=== PATIENT | female | born 1985 | race Caucasian/White ===

== ENCOUNTER 2024-06-11 19:03 | Emergency (ER) | payer MEDICAID, SELFPAY ==
--- NOTE | ~2024-06-11 | CT_ITS ---
EXAMINATION: CT ABDOMEN AND PELVIS WITH CONTRAST CLINICAL INFORMATION: Right lower quadrant pain with history of appendectomy COMPARISON: None TECHNIQUE: Multidetector volumetric imaging was performed from the superior aspect of the liver through the pubic symphysis with intravenous contrast. A total of 85 mL of Omnipaque 350 was utilized for the study. Sagittal and coronal reformatted images were obtained on the technologist's workstation. This CT examination was performed using dose optimization techniques as appropriate, variously including the following: *Automated exposure control *Adjustment of mA and/or kV according to patient size (this includes techniques or standardized protocols for targeted exams where dose is matched to indication/reason for exam; i.e. extremities or head) *Use of iterative reconstruction technique DLP: 707 mGy-cm FINDINGS: LUNG BASES: The visualized lung bases are unremarkable. LIVER, GALLBLADDER, AND BILIARY TREE: The liver is normal in size, shape, and attenuation. No focal hepatic lesion. There is mild prominence of central bile ducts along with dilatation of the common bile duct at 1.2 cm.. The gallbladder is unremarkable with no evidence of radiopaque gallstones, gallbladder wall thickening, or obvious pericholecystic inflammatory changes. PANCREAS: Unremarkable. SPLEEN: Spleen is enlarged measuring 16.4 cm in cephalocaudad dimension. ADRENAL GLANDS: Unremarkable. KIDNEYS AND URETERS: The kidneys are normal in size, shape, and attenuation. No hydronephrosis, hydroureter, or calculi seen. No perinephric stranding. BLADDER: Unremarkable. GASTROINTESTINAL TRACT: The small and large bowel are unremarkable. The appendix is not seen and there are surgical clips present in the expected region of the appendix. ABDOMINAL WALL: No significant hernia is appreciated. LYMPH NODES: No retroperitoneal lymphadenopathy. VASCULAR: Unremarkable. PELVIC VISCERA: Unremarkable. OSSEOUS STRUCTURES: Unremarkable. CT/CT abdomen pelvis w IV con IMPRESSION: 1. A cause for the patient's right lower quadrant pain has not been found. 2. Status post appendectomy. 3. Incidental note made of splenomegaly and dilatation of the common bile duct. Abdominal ultrasound or possibly even MRCP may be useful for further evaluation. Fleischner guidelines were followed. Electronically signed by: Jorge Alberto Phillips MD 06/12/2024 12:19 AM EDT
--- NOTE | ~2024-06-11 | US_ITS ---
EXAMINATION: US ABDOMEN LIMITED CLINICAL INFORMATION: Right upper quadrant pain. Elevated liver function tests.. COMPARISON: CT abdomen and pelvis 06/11/2024. TECHNIQUE: Real-time imaging of the right upper quadrant abdominal viscera. FINDINGS: PANCREAS: The visualized pancreatic head and body are normal in appearance. LIVER: Normal. The liver is normal in size. The liver contour is normal. Parenchymal echogenicity is normal. No focal hepatic lesion. There is no intrahepatic biliary duct dilatation seen. GALLBLADDER: Normal appearance of the gallbladder. The gallbladder demonstrates moderate physiologic distention. No cholelithiasis identified. A negative sonographic Hernandez's sign reported by the surgical scrub technologist. Normal gallbladder wall thickness. No pericholecystic fluid collections. COMMON BILE DUCT: Normal in caliber measuring 1.1 cm in diameter. RIGHT KIDNEY: Normal. No hydronephrosis. No renal calculi or focal parenchymal lesions. The kidney measures 10.8 cm in maximum dimension. FREE FLUID: None. US/US abdomen limited IMPRESSION: *Ectasia of the common bile duct. The common bile duct measures 1.1 cm in maximum diameter. No choledocholithiasis identified. No intrahepatic biliary duct dilatation. Findings could be secondary to dysfunction of the sphincter of Teddy or nonvisualized choledocholithiasis. *No cholelithiasis. No gallstones noted within the gallbladder lumen. Normal appearance of the gallbladder. Electronically signed by: Ludwin Walsh MD 06/12/2024 02:22 AM EDT
[2024-06-11 19:34] VITALS: BP 113/74; BP 118/75; PULSE 68; PULSE 76; RESP 16; TEMP 36.4; O2SAT 100; BMI 32.9
--- NOTE | 2024-06-11 19:43 | ECG_ITS ---
Test Reason : chest pain Blood Pressure : / mmHG Vent. Rate : 060 BPM Atrial Rate : 060 BPM P-R Int : 158 ms QRS Dur : 078 ms QT Int : 448 ms P-R-T Axes : 048 -14 029 degrees QTc Int : 448 ms Normal sinus rhythm Normal ECG No previous ECGs available Referred By: Generic ED Physician Electronically Signed By:BECK STOCK
[2024-06-11 20:07] LABS: Appearance Urine Clear; Color Urine Dark Yellow; Glucose Urine UA Negative (Negative); Leukocyte Esterase Urine Trace (Negative); Nitrite Urine Negative (Negative); PH 5.5 (5.0-9.0); Specific Gravity - Urine >= 1.030 (1.005-1.025); UMIC TRIGGER UACC YES; Urine Blood Negative (Negative); Urine Ketones Negative (Negative); Urine Protein Negative (Neg-Trace)
[2024-06-11 20:08] LABS: UPreg QC Valid YES; Urine Pregnancy NEGATIVE (NEGATIVE)
[2024-06-11 20:21] LABS: Bacteria Urine Trace (None Seen); Hyaline Casts Urine 0-2 /LPF (0-2); RBC Urine 0-2 /HPF (0-2); WBC Urine 0-5 /HPF (0-5)
--- NOTE | 2024-06-11 20:48 | PC.NURSE ---
multiple attempts for iv/labs pt refusing further pokes.
--- NOTE | 2024-06-11 21:23 | MHC.EDTECH ---
Unable to get labs,multiple attempts, rn neurology came and attempted was not successful,RN is aware
--- NOTE | 2024-06-11 21:54 | PC.NURSE ---
Isak NGUYEN made aware unable to obtain labs.
--- NOTE | 2024-06-11 22:05 | ED.FEMALEGU ---
HPI - Female Genitourinary General Chief complaint: Urogenital-Female Stated complaint: [place], R sided abd, radiating to back Time Seen by Provider: 06/11/24 21:55 Source: patient and EMS Mode of arrival: EMS Limitations: no limitations History of Present Illness ED Provider: Dr. Lenore Bowman HPI Narrative: Patient comes to the emergency room complaining of right lower quadrant pain for couple of days. Patient states that the pain radiates towards the back. Patient is coming via ambulance from [facility] for right lower quadrant pain. Patient states that she had an appendectomy when she was 15 years old. Patient denies vaginal bleeding. Patient concerned about being . According to the patient's nurse, in triage she was noted the patient was concerned about being poisoned with red poison. She did not make any mention of this to me. Patient denies nausea vomiting or diarrhea Related Data Previous Rx's ?Medication ?Instructions ?Recorded hyoscyamine sulfate 0.125 mg tablet 0.125 mg PO QID PRN dyspepsia #10 06/12/24 tabs Allergies Allergy/AdvReac Type Severity Reaction Status Date / Time Penicillins Allergy Shortness Verified 06/11/24 19:41 of Breath Review of Systems Review of Systems: Constitutional : No Weight loss, No Fever, No Chills, No Night Sweats, No Fatigue, No Malaise ENT/Mouth : No Hearing loss, No Ear Pain, No Nasal Congestion, No Sinus Pain, No Hoarseness, No sore throat, No Rhinorrhea, No Swallowing Difficulty Eyes: No Eye Pain, No Swelling, No Redness, No Foreign Body, No Discharge, No Vision Changes Cardiovascular : No Chest Pain, No SOB, No Dyspnea on Exertion, No Orthopnea, No Edema, No Palpitations Respiratory : No Cough, No Sputum, No Wheezing, No Smoke Exposure, No Dyspnea Gastrointestinal : No Nausea, No Vomiting, No Diarrhea, No Constipation, complaining of right lower quadrant pain radiating towards the back Genitourinary : no irregular bleeding, No Dysuria, No Urinary Frequency, No Hematuria, No Urinary Incontinence, No Urgency, No Flank Pain, No Urinary Flow Changes, No Hesitancy Musculoskeletal : No joint pain, No Myalgias, No Joint Swelling Skin : No Skin Lesions, No rash Neuro : No Weakness, No Numbness, No Paresthesias, No Loss of Consciousness, No Dizziness, No Headache Psych : No Anxiety/Panic, No Depression, No SI/HI/AH/VH, No Social Issues, Heme/Lymph: No Bruising, No Bleeding,No Lymphadenopathy Endocrine : No Polyuria, No Polydipsia, No Temperature Intolerance [facility] Social History Social History Advance Directives: No Advance Directives Information Provided: No Do you have a plan to hurt others: No Plan Physical Exam Vital Signs: Vital Signs: Last Vital Signs Temp 98.1 F 06/11/24 22:14 Pulse 74 06/11/24 22:14 Resp 18 06/11/24 22:14 BP 142/81 H 06/11/24 22:14 Pulse Ox 98 06/11/24 22:14 O2 Del Method Room Air 06/11/24 22:14 BMI result Body Mass Index 32.9 Const: Other: Appearance: Alert. Oriented X3. No acute distress. Eyes: Pupils equal, round and reactive to light. ENT: Pharynx normal. Neck: Normal inspection. Neck supple. No lymph nodes noted. No crepitus CVS: Normal heart rate and rhythm. Pulses normal. Normal S1 and S2 Respiratory: No respiratory distress. Breath sounds normal. No Wheezing. No rales Abdomen: Soft , mild to moderate tenderness to palpation in the suprapubic and right lower quadrant. No rigidity. No distention. Skin: Skin warm and dry. Normal skin color. Normal skin turgor. Extremities: No lower extremity edema. No Lacerations. No Rash Neuro: Oriented X 3. No motor deficit. No sensory deficit. Moving all extremities. No slurred speech. CN 2 through 12 grossly intact Psych: calm, cooperative, normal affect Course Course Course Narrative: All of patient's labs pending CT scan pending Medications Administered Discontinued Medications Generic Name Dose Route Start Last Admin Trade Name Freq PRN Reason Stop Dose Admin Iohexol 85 ml 06/11/24 23:06 06/11/24 23:07 Iohexol 350 Mg/Ml 100 Ml Infus..Btl IV 06/11/24 23:07 85 ml ONCE ONE Administration Medical Decision Making Medical Decision Making [facility] Narrative: My interpretation of labs: Significant abnormality in patient's hematology, chemistry within normal limits, T bilirubin normal, AST LFT and alk-phos are slightly elevated. Troponin negative., lipase negative -my interpretation of CT scan of the abdomen, no obvious abnormality. Radiology report shows an incidental note of splenomegaly and dilation of the common bile duct. -ultrasound of the abdomen: Common bile duct normal in caliber measuring 1.1 cm. No choledocholithiasis identified, findings could be secondary to dysfunction of sphincter of Oddi, no acute cholecystitis. Patient instructed to follow-up with gastroenterology. Differential Diagnosis Differential Diagnoses: The differential diagnosis associated with the presentation includes (Gastritis, gastroenteritis, pancreatitis, acute cholecystitis, choledocholithiasis) Admission/Observation Consideration of admission/observation: Escalation of care including admission/observation considered (Given patient's labs and imaging, observation was considered) Lab Data MDM Lab Attestation statement: I reviewed the patient's lab results. 06/11/24 22:26 06/11/24 22:26 Labs: Lab Results 06/11/24 06/11/24 Range/Units 22:26 Unknown WBC 4.3 L (4.8-10.8) X10*3/uL RBC 4.56 (4.20-5.50) X10*6/uL Hgb 13.1 (12.0-16.0) g/dl Hct 38.8 (37.0-47.0) % MCV 85.1 (80.0-98.0) fL MCH 28.7 (27.0-33.0) pg MCHC 33.8 (31.0-35.0) g/dl RDW 13.4 (11.0-16.0) % Plt Count 116 L (160-400) X10*3/uL MPV 9.8 (9.4-12.3) fL Immature Gran % (Auto) 0.0 (0.0-0.4) % Neut % (Auto) 37.5 L (45-73) % Lymph % (Auto) 54.0 H (20-40) % Waller % (Auto) 6.6 (2-11) % Eos % (Auto) 1.4 (0-4) % Baso % (Auto) 0.5 (0-2) % Lymph # (Auto) 2.3 (1.2-4.9) X10*3/uL Waller # (Auto) 0.3 (0.1-1.2) X10*3/uL Eos # (Auto) 0.1 (0.0-0.4) X10*3/uL Baso # (Auto) 0.0 (0.0-0.2) X10*3/uL Abs Immat Gran (auto) 0.00 (0.00-0.03) X10*3/uL Absolute Neuts (auto) 1.6 L (2.0-8.3) x10*3/uL Absolute Nucleated RBC 0.000 (0.0-0.012) X10*3/uL Nucleated RBC % (auto) 0.0 (0.0-0.2) /100WBC Sodium 140 (135-145) mmol/L Potassium 4.5 (3.3-5.1) mmol/L Chloride 103 (96-108) mmol/L Carbon Dioxide 30 H (22-29) mmol/L Anion Gap 12 (12-20) BUN 13 (9-16) mg/dL Creatinine 0.77 (0.5-1.4) mg/dL Estim Creat Clear Calc 97.1 Estimated GFR > 60 Random Glucose 105 (60-115) mg/dL Calcium 9.4 (8.4-10.2) mg/dL Total Bilirubin 0.4 (0.0-1.0) mg/dL AST 196 H (5-31) U/L ALT 195 H (0-31) U/L Alkaline Phosphatase 130 H (39-117) U/L Troponin I High Sens < 2.7 (<3.5-17.0) ng/L Total Protein 7.5 (6.5-8.0) g/dL Albumin 3.8 (3.5-5.0) g/dL Lipase 22 (8-78) U/L Urine Color Dark Yellow Urine Appearance Clear Urine pH 5.5 (5.0-9.0) Ur Specific [place] >= 1.030 H (1.005-1.025) Urine Protein Negative (Neg-Trace) mg/dL Urine Glucose (UA) Negative (Negative) mg/dL Urine Ketones Negative (Negative) mg/dL Urine Blood Negative (Negative) Urine Nitrite Negative (Negative) Ur Leukocyte Esterase Trace H (Negative) Urine RBC 0-2 (0-2) /HPF Urine WBC 0-5 (0-5) /HPF Ur Squamous Epith Cells 6-10 (0-2) /HPF Urine Bacteria Trace (None Seen) Hyaline Casts 0-2 (0-2) /LPF Urine Test NEGATIVE (NEGATIVE) Independent Interpretation I performed an independent interpretation of an: Ultrasound Radiology Impression Discussion of test interpretation with radiology: I have reviewed the radiologist's reading. Radiologist Impression: US ABDOMEN LIMITED CLINICAL INFORMATION: Right upper quadrant pain. Elevated liver function tests.. COMPARISON: CT abdomen and pelvis 06/11/2024. TECHNIQUE: Real-time imaging of the right upper quadrant abdominal viscera. FINDINGS: PANCREAS: The visualized pancreatic head and body are normal in appearance. LIVER: Normal. The liver is normal in size. The liver contour is normal. Parenchymal echogenicity is normal. No focal hepatic lesion. There is no intrahepatic biliary duct dilatation seen. GALLBLADDER: Normal appearance of the gallbladder. The gallbladder demonstrates moderate physiologic distention. No cholelithiasis identified. A negative sonographic Hernandez's sign reported by the anesthesiology technologist. Normal gallbladder wall thickness. No pericholecystic fluid collections. COMMON BILE DUCT: Normal in caliber measuring 1.1 cm in diameter. RIGHT KIDNEY: Normal. No hydronephrosis. No renal calculi or focal parenchymal lesions. The kidney measures 10.8 cm in maximum dimension. FREE FLUID: None. US/US abdomen limited IMPRESSION: *Ectasia of the common bile duct. The common bile duct measures 1.1 cm in maximum diameter. No choledocholithiasis identified. No intrahepatic biliary duct dilatation. Findings could be secondary to dysfunction of the sphincter of Teddy or nonvisualized choledocholithiasis. *No cholelithiasis. No gallstones noted within the gallbladder lumen. Normal appearance of the gallbladder. Critical Care Time Critical Care Time Critical Care Time: Yes Total Critical Care Time: 30 Attestation: I have personally provided critical care time. Time includes review of lab data, radiology results, discussion with consultants, and monitoring for potential decompensation. Intervention performed as documented. Discharge Plan Discharge Clinical Impression: Abdominal pain Patient Disposition: Xfer Other Transfer Details: Patient returning to [facility] Instructions: Abdominal Pain (ED) Additional Instructions: Please follow-up with your primary care physician tomorrow. If you have any worsening or new symptoms, please return to the emergency room or call 911 Prescriptions: New hyoscyamine sulfate 0.125 mg tablet 0.125 mg PO QID PRN (Reason: dyspepsia) Qty: 10 0RF Print Language: Setswana
[2024-06-11 22:14] VITALS: BP 142/81; PULSE 74; RESP 18; TEMP 36.7; O2SAT 98
[2024-06-11 22:31] LABS: MANUAL DIFF FLAG NO
[2024-06-11 22:37] LABS: Basophils Percent Auto 0.5 % (0-2); Eosinophils Absolute Auto 0.1 X10*3/uL (0.0-0.4); Eosinophils Percent Auto 1.4 % (0-4); Hematocrit 38.8 % (37.0-47.0); Hemoglobin 13.1 g/dl (12.0-16.0); Lymphocytes Absolute Auto 2.3 X10*3/uL (1.2-4.9); Mean Corpuscular HGB Conc 33.8 g/dl (31.0-35.0); Mean Corpuscular Hemoglobin 28.7 pg (27.0-33.0); Mean Corpuscular Volume 85.1 fL (80.0-98.0); Mean Platelet Volume 9.8 fL (9.4-12.3); Monocytes Absolute Auto 0.3 X10*3/uL (0.1-1.2); Monocytes Percent Auto 6.6 % (2-11); Neutrophils Absolute Auto 1.6 x10*3/uL (2.0-8.3); Neutrophils Percent Auto 37.5 % (45-73); Platelet Count 116 X10*3/uL (160-400); Red Blood Count 4.56 X10*6/uL (4.20-5.50); Red Cell Distribution Width 13.4 % (11.0-16.0); White Blood Count 4.3 X10*3/uL (4.8-10.8)
[2024-06-11 22:54] LABS: Alanine Aminotransferase 195 U/L (0-31); Albumin Level 3.8 g/dL (3.5-5.0); Alkaline Phosphatase 130 U/L (39-117); Anion Gap 12 (12-20); Aspartate Amino Transferase 196 U/L (5-31); Bilirubin Total 0.4 mg/dL (0.0-1.0); Blood Urea Nitrogen 13 mg/dL (9-16); Carbon Dioxide 30 mmol/L (22-29); Chloride 103 mmol/L (96-108); Creatinine Clr Calc Pharmacy 97.1; Estimated Glomerular Filt Rate > 60; Glucose Random 105 mg/dL (60-115); Potassium 4.5 mmol/L (3.3-5.1); Sodium 140 mmol/L (135-145); Total Protein 7.5 g/dL (6.5-8.0)
[2024-06-11 23:00] LABS: Troponin-I High Sensitivity < 2.7 ng/L (<3.5-17.0)
[2024-06-11] MEDS: iohexoL 350 MG/ML 100 ML INFUS..BTL 85 ML IV (23:07)
[2024-06-12 00:02] LABS: Calcium 9.4 mg/dL (8.4-10.2)
[2024-06-12 00:49] LABS: Lipase 22 U/L (8-78)
--- NOTE | 2024-06-12 00:57 | PC.NURSE ---
pt to u/s with senior network security engineer as pt is on sec 21.
--- NOTE | 2024-06-12 03:00 | PC.NURSE ---
report given to og truck supervisor at [facility]. in agreement with d/c.
[2024-06-12 03:21] VITALS: BP 108/63; PULSE 74; RESP 18; TEMP 36.7; O2SAT 98
== END 2024-06-12 03:22 | disposition other institution (70) ==
PROVIDERS: Emergency Provider Emergency Medicine
DX: R10.31 Right lower quadrant pain (principal)
CPT/HCPCS: 36415; 74177; 76705; 80053; 81001; 81025; 83690; 84484; 85025; 93005; 99284; Q9967

== ENCOUNTER → 2024-06-11 19:43 | Outpatient (BNV) | payer MEDICAID, SELFPAY | PROVIDERS: Emergency Provider Emergency Medicine; Visit Provider Internal Medicine | DX: R07.9 Chest pain, unspecified (principal) | CPT/HCPCS: 93010 ==